=== PATIENT | male | born 1990 | race Caucasian/White ===

== ENCOUNTER 2017-12-18 01:45 | Inpatient (IN) | payer OTHER, BC ==
[~2017-12-18] VITALS: Ht 190.5 cm; Wt 61.2 kg
[2017-12-18] VITALS (11 sets, daily range): BP systolic 108–169; BP diastolic 58–95; PULSE 54–97; RESP 15–20; TEMP 97.6–98.3; O2SAT 94–100
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
[2017-12-18] MEDS ORDERED: SODIUM CHLOR 0.9% 1000 ML INJ 1,000 ML IV SCH (02:42)
[2017-12-18] MEDS ORDERED: SODIUM CHLORIDE 0.9% FLUSH 10 ML FLUSH IV FLUSH PRN ×2 (02:45→08:00)
[2017-12-18] MEDS: SODIUM CHLORIDE 0.9% FLUSH 10 ML FLUSH IV FLUSH SCH ×2 (07:25→20:47)
[2017-12-18] MEDS: MORPHINE SULFATE 4 MG/ML INJ IV PUSH PRN ×2 (07:26→09:35)
[2017-12-18] MEDS ORDERED: MORPHINE SULFATE 4 MG/ML INJ IV PUSH PRN (08:00)
[2017-12-18] MEDS ORDERED: ONDANSETRON ODT 4 MG TAB PO PRN (08:00)
[2017-12-18] MEDS ORDERED: levETIRAcetam INJ 500 MG in SODIUM CHLORIDE 0.9% INJ 100 ML IV SCH (09:00)
[2017-12-18] MEDS ORDERED: PANTOPRAZOLE SODIUM 40 MG VIAL IVP SCH (09:00)
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
[2017-12-18] MEDS ORDERED: ACETAMINOPHEN 325 MG TAB PO PRN (11:45)
[2017-12-18 12:03] LABS: AUTOMATED NEUTROPHIL # 4.7 TH/MM3 (1.8-7.7); BASOPHIL % 0.3 % (0.0-2.0); EOSINOPHIL # 0.3 TH/MM3 (0-0.4); EOSINOPHIL % 4.9 % (0.0-4.0); HEMATOCRIT 35.7 % (39.0-51.0); HEMOGLOBIN 12.1 GM/DL (13.0-17.0); LYMPH % 19.5 % (9.0-44.0); LYMPHOCYTE # 1.3 TH/MM3 (1.0-4.8); MEAN CELL VOLUME 96.5 FL (80.0-100.0); MEAN CORPUSCULAR HEMOGLOBIN 32.8 PG (27.0-34.0); MEAN PLATELET VOLUME 9.4 FL (7.0-11.0); MONO % 7.7 % (0.0-8.0); MONOCYTE # 0.5 TH/MM3 (0-0.9); NEUT % 67.6 % (16.0-70.0); PLATELET COUNT 126 TH/MM3 (150-450); RED CELL DISTRIBUTION WIDTH 12.4 % (11.6-17.2); WHITE BLOOD COUNT 6.9 TH/MM3 (4.0-11.0)
[2017-12-18 12:23] LABS: BICARBONATE 25.3 MEQ/L (21.0-32.0); CALCIUM 8.2 MG/DL (8.5-10.1); CREATININE 0.61 MG/DL (0.60-1.30)
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
[2017-12-18] MEDS: levETIRAcetam 500 MG TAB PO SCH (20:47)
[2017-12-18] MEDS: DOCUSATE SODIUM 50 MG/SENNA 8.6 MG TAB PO SCH (21:00)
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
[2017-12-19] VITALS: BP 103/54; PULSE 53; RESP 15; TEMP 97.5; O2SAT 96
[2017-12-19 04:00] VITALS: BP 124/60; PULSE 59; RESP 15; TEMP 98; O2SAT 98
[2017-12-19 08:00] VITALS: BP 108/56; PULSE 55; RESP 20; TEMP 99.1; O2SAT 99
[2017-12-19 08:14] LABS: AUTOMATED NEUTROPHIL # 3.9 TH/MM3 (1.8-7.7); BASOPHIL % 0.6 % (0.0-2.0); EOSINOPHIL # 0.5 TH/MM3 (0-0.4); EOSINOPHIL % 7.8 % (0.0-4.0); HEMATOCRIT 37.3 % (39.0-51.0); HEMOGLOBIN 12.7 GM/DL (13.0-17.0); LYMPH % 22.6 % (9.0-44.0); LYMPHOCYTE # 1.4 TH/MM3 (1.0-4.8); MEAN CELL VOLUME 96.4 FL (80.0-100.0); MEAN CORPUSCULAR HEMOGLOBIN 32.8 PG (27.0-34.0); MEAN CORPUSCULAR HGB CONC 34.1 % (32.0-36.0); MEAN PLATELET VOLUME 10.6 FL (7.0-11.0); MONO % 7.6 % (0.0-8.0); MONOCYTE # 0.5 TH/MM3 (0-0.9); NEUT % 61.4 % (16.0-70.0); PLATELET COUNT 133 TH/MM3 (150-450); RED BLOOD COUNT 3.87 MIL/MM3 (4.50-5.90); RED CELL DISTRIBUTION WIDTH 12.2 % (11.6-17.2); WHITE BLOOD COUNT 6.4 TH/MM3 (4.0-11.0)
[2017-12-19 08:52] LABS: ALBUMIN 3.6 GM/DL (3.4-5.0); ALT (GPT) 35 U/L (12-78); AST (GOT) 38 U/L (15-37); BICARBONATE 22.2 MEQ/L (21.0-32.0); BLOOD UREA NITROGEN 11 MG/DL (7-18); CALCIUM 8.4 MG/DL (8.5-10.1); CHLORIDE 107 MEQ/L (98-107); CREATININE 0.61 MG/DL (0.60-1.30); GLOMERULAR FILTRATION RATE 160 ML/MIN (>89); GLUCOSE,RANDOM 68 MG/DL (74-106); SODIUM (NA) 141 MEQ/L (136-145)
[2017-12-19 08:54] LABS: ALKALINE PHOSPHATASE 43 U/L (45-117); TOTAL BILIRUBIN ADULT 0.7 MG/DL (0.2-1.0); TOTAL PROTEIN 6.7 GM/DL (6.4-8.2)
[2017-12-19] MEDS: levETIRAcetam 500 MG TAB PO SCH (09:48)
[2017-12-19] MEDS: DOCUSATE SODIUM 50 MG/SENNA 8.6 MG TAB PO SCH (09:48)
[2017-12-19] MEDS: SODIUM CHLORIDE 0.9% FLUSH 10 ML FLUSH IV FLUSH SCH (09:50)
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
[2017-12-19 12:00] VITALS: BP 119/56; PULSE 57; RESP 20; TEMP 98.4; O2SAT 98
[2017-12-19] MEDS ORDERED: PERC5TAB12 PO (12:08)
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
== END 2017-12-19 14:45 | disposition home or self-care (01) | DRG 965 ==
LOC: NEPC 01:45 → NEDA 02:34 → NEDH 12:31 → N05A 14:16
PROVIDERS: ADMIT Surgery; ATTEND Surgery
DX: S36.893A Laceration of other intra-abdominal organs, initial encounter (principal); S06.2X0A Diffuse traumatic brain injury without loss of consciousness, initial encounter; D69.6 Thrombocytopenia, unspecified; D64.9 Anemia, unspecified; S16.1XXA Strain of muscle, fascia and tendon at neck level, initial encounter; F12.90 Cannabis use, unspecified, uncomplicated; S30.1XXA Contusion of abdominal wall, initial encounter; H53.8 Other visual disturbances; F98.8 Other specified behavioral and emotional disorders with onset usually occurring in childhood and adolescence; V47.5XXA Car driver injured in collision with fixed or stationary object in traffic accident, initial encounter
CPT/HCPCS: 70450; 80048; 80053; 85025; 94150; C9113; J1953; J2270; J7030